=== PATIENT | female | born 1960 | race Caucasian/White ===

== ENCOUNTER 2025-05-07 14:56 | Inpatient (IN) | payer MEDICARE, SELFPAY ==
[2025-05-07 15:10] VITALS: BP 130/76; PULSE 65; PULSE 82; RESP 16; RESP 17; TEMP 36.3; O2SAT 95; BMI 45.8
--- NOTE | 2025-05-07 20:31 | PCM.HP.STD ---
HPI - General General Date of Admission: 05/07/25 Date of Service: 05/07/25 Chief Complaint: Here for rehabilitation. HPI Narrative BENJIE DALE, is a 64 Female who presents with followin05/05/2025 Admit [facility]. 05/05/2025 Orthopedics performed right posterior total hip arthroplasty. 05/06/2025 Doing well, pain controlled with medications, up to bathroom. No difficulty voiding. WBAT, antibiotics 24 hours, discharge on Duricef. PT/OT, pain control. Aspirin 81mg po bid, scd for dvt prophylaxis. PT/OT Home versus SNF. 05/07/2025 Admit to TCU with debility, here for rehabilitation, strengthening, prior to discharge home alone. [facility] Medical History (Updated 05/07/25 @ 20:[address] Max Miller MD) Anxiety Depression GERD (gastroesophageal reflux disease) Osteoarthritis of right hip Debility Home Medications ?Medication ?Instructions ?Recorded ?Last Taken ?Type aspirin 81 mg tablet,delayed 81 mg PO BID blood thinner 05/07/25 Unknown History release (Adult Aspirin Regimen) docusate sodium 100 mg capsule 100 mg PO BID stool softener 05/07/25 Unknown History duloxetine 30 mg capsule,delayed 30 mg PO QHS mood 05/07/25 Unknown History release hydrocodone-acetaminophen 5-325mg 1 - 2 tab PO Q4H PRN pain 05/07/25 Unknown History 5mg-325mg hydroxyzine pamoate 25 mg capsule 25 - 50 mg PO QHS PRN anxiety 05/07/25 Unknown History polyethylene glycol 3350 17 17 g PO DAILY PRN constipation 05/07/25 Unknown History gram/dose oral powder (Miralax) tranexamic acid 650 mg tablet 1,950 mg PO BID bleeding 05/07/25 Unknown History Allergy/AdvReac Type Severity Reaction Status Date / Time tramadol Allergy Intermediate Hives Verified 05/07/25 15:53 trazodone Allergy Hives Verified 05/07/25 15:53 Family History (Updated 05/07/25 @ 20:[address] Max Miller MD) Mother Heart disease Diabetes Myocardial infarction Ovarian cancer Morbid obesity Father Heart disease Myocardial infarction Aneurysm Aunt Ovarian cancer Surgical History (Updated 05/07/25 @ 20:[address] Max Miller MD) History of wisdom tooth extraction History of tubal ligation History of total left knee replacement History of total left hip arthroplasty History of lithotripsy History of total right knee replacement History of bilateral salpingo-oophorectomy (BSO) History of hysterectomy History of dilatation and curettage History of removal of ureteral stent History of cystoscopy History of appendectomy Status post total hip replacement, right Social History (Updated 05/07/25 @ 20:[address] Max Miller MD) household members: none Smoking Status: Never smoker alcohol intake: current alcohol intake frequency: holidays/special occasions only details: Once per month. substance use type: does not use ROS Constitutional Constitutional: Reports weakness; Denies chills, fever(s) or weight gain ENT HEENT: Denies headache(s), nasal congestion or nasal discharge Cardiovascular Cardiovascular: Denies chest pain or palpitations Respiratory/Chest Respiratory/Chest: Denies cough, excessive phlegm production or shortness of breath with exertion Gastrointestinal Gastrointestinal: Denies abdominal pain, nausea or vomiting Genitourinary Genitourinary: Denies dysuria Musculoskeletal Musculoskeletal: Denies joint pain or joint swelling Integumentary Integumentary: Denies rash or wounds Neurologic Neurologic: Denies focal weakness, numbness or tingling Psychiatric Psychiatric: Denies anxiety, auditory hallucinations, depression, homicidal ideation or suicidal ideation Vital Signs Vital Signs Vital Signs: 05/07/25 15:10 05/07/25 15:10 Temperature 97.3 F L Temperature Source Temporal Pulse Rate 82 65 Pulse Rhythm Regular Pulse Strength Normal (2+) Respiratory Rate 16 17 Respiratory Effort Normal Non-Labored Respiratory Depth Normal Respiratory Pattern Normal Blood Pressure 130/76 H Blood Pressure Mean 94 Blood Pressure Source Monitor Blood Pressure Position Sitting Blood Pressure Location Right Arm Pulse Ox 95 Oxygen Delivery Method Room Air Room Air Weight Weight: 103.011 kg Body Mass Index (BMI) 45.8 Physical Exam Const alert General Appearance: cooperative HEENT normocephalic Eyes PERRL and EOMs intact bilaterally Neck supple, no JVD and no carotid bruits Resp normal respiratory effort, normal air movement and clear to auscultation bilaterally Cardio regular rate and regular rhythm GI normal to inspection, nondistended, normoactive bowel sounds, non-tender and non-distended Extremity normal capillary refill General Extremity: Negative for edema Skin no rashes or lesions noted General Skin Exam: no breakdown Psych affect normal Appearance: appropriate Assessment & Plan Assessment/Plan (1) Debility: (2) Osteoarthritis of right hip: (3) Status post total hip replacement, right: (4) GERD (gastroesophageal reflux disease): (5) Depression: (6) Anxiety: PLAN: Plan 64 year old female with below past medical history underwent right total hip replacement 05/05/2025, admitted to TCU with debility, here for rehabilitation, strengthening, prior to discharge home alone. Debility - PT/OT. Pain - Tylenol 1000mg q8, Oxycodone mg q4 prn pain (1-10). Bowel - Miralax 17gm daily, senna/colace 2 tablets bid, Magnesium citrate 300mL daily prn. Adult immunization - Administer pneumonia vaccine, covid vaccine, flu vaccine as appropriate. DVT prophylaxis - Aspirin 81mg bid thru 06/02/2025. Insomnia - Hydroxyzine 25mg - 50mg qhs prn. Tinea Corporis - Nystatin powder topical bid. The following psychotropic medication was present on admission: Duloxetine 30mg qhs. Psychotropic medication therapy is indicated for a diagnosis of: Major Depression. Based on my clinical evaluation, continuation of the medication is necessary at this time. Gradual dose reduction plan (select one): ____ GDR will be attempted. Will monitor patient symptoms and behaviors in response to GDR. __x__ GRD contraindicated. 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
[2025-05-07] MEDS: Senna/Docusate Sodium 1 Tablet 2 TABLET PO (21:33)
[2025-05-07] MEDS: hydrOXYzine PAM 25 MG Capsule PO (21:38)
[2025-05-08 05:00] VITALS: BP 121/62; PULSE 71; RESP 16; TEMP 36.7; O2SAT 97
[2025-05-08 05:47] LABS: Hematocrit 32.9 % (37-47); Hemoglobin 9.9 g/dL (12.0-15.0); Immature Granulocytes Count 0.100 X10^3/uL (0.0-0.0); Mean Corp Hgb Conc 30.1 g/dL (32-36); Mean Corpuscular Volume 85.2 fL (81-99); Mean Platelet Vol. 8.9 fl (6.2-12.0); NRBC Flagged by Analyzer 0 % (0-5); Platelet Count 277 K/mm3 (150-450); RBC Distribution Width CV 15.6 % (11.6-14.6); RBC Distribution Width SD 47.8 fl (35.1-43.9); Red Blood Count 3.86 M/mm3 (4.2-5.4); White Blood Count 11.7 K/mm3 (4.4-11.0)
[2025-05-08 06:04] LABS: Anion Gap 7 (5-15); BUN 16 mg/dL (4-19); BUN/Creat Ratio 18.3 RATIO (10-20); Calcium,Total 8.3 mg/dL (7.6-11.0); Carbon Dioxide 24.4 mmol/L (21.0-32.0); Chloride 106 mmol/L (98-108); Estimated Creatinine Clearance 70.53 ml/min (50-250); Glucose 121 mg/dL (70-99); Potassium 4.4 mmol/L (3.3-5.1)
--- NOTE | 2025-05-08 07:40 | PHA.CONS_ITS ---
Documented by User: Sandra Verdin 05/08/25 07:53 TCU RX Drug Regimen Review Subjective/Objective Subjective/Objective Subjective: TCU Admission. 64 YOF presented to outside hospital and underwent right total hip replacement 05/05/2025. Admitted to TCU with debility for [facility] and rehabilitation. Objective: Allergies tramadol Allergy (Intermediate, Verified 05/07/25 15:53) Hives trazodone Allergy (Verified 05/07/25 15:53) Hives Current Medications Generic Name Dose Route Start Last Admin Trade Name Freq PRN Reason Stop Dose Admin Acetaminophen 1,000 mg 05/07/25 18:00 05/08/25 05:23 Acetaminophen 500 Mg Tablet PO 1,000 mg Q8 LASHELL Administration Aspirin 81 mg 05/07/25 17:00 05/07/25 18:08 Aspirin 81 Mg Tab.Chew PO 06/02/25 23:59 81 mg BIDCM LASHELL Administration Duloxetine HCl 30 mg 05/07/25 22:00 05/07/25 21:34 Duloxetine Hcl 30 Mg Capsule PO 30 mg QHS LASHELL Administration Hydroxyzine Pamoate 25 - 50 mg 05/07/25 15:22 05/07/25 21:38 Hydroxyzine Antonieta 25 Mg Capsule PO 25 mg QHS PRN Administration anxiety Magnesium Citrate 300 ml 05/07/25 20:43 Magnesium Citrate 300 Ml PO DAILY PRN CONSTIPATION Nystatin 1 applic 05/07/25 22:00 05/07/25 21:33 Nystatin Powder 15gm Bottle TOPICAL 1 applic BID LASHELL Administration Protocol Oxycodone HCl 5 mg 05/07/25 17:29 05/08/25 03:38 Oxycodone 5 Mg Tablet PO 5 mg Q4H PRN PRN Administration Pain Score 1-10 or Pre PT/OT Polyethylene Glycol 17 gm 05/08/25 10:00 Polyethylene Glycol 3350 17 Gm Packet PO DAILY LASHELL Senna/Docusate Sodium 2 tablet 05/07/25 22:00 05/07/25 21:33 Senna/Docusate Sodium 1 Tablet PO 2 tablet BID LASHELL Administration Tuberculin PPD 0.1 ml 05/15/25 10:00 Tuberculin,Purif.Prot.Deriv. 50 Tu/Ml Vial ID 05/15/25 10:01 X1 ONE Tuberculin PPD 0.1 ml 05/08/25 10:00 Tuberculin,Purif.Prot.Deriv. 50 Tu/Ml Vial ID 05/08/25 10:01 X1 ONE Problem List Anxiety (Acute) Depression (Acute) GERD (gastroesophageal reflux disease) (Acute) Status post total hip replacement, right (Acute) Osteoarthritis of right hip (Acute) Debility (Acute) Vital Signs Temp Pulse Resp BP Pulse Ox O2 Del Method 98.0 F 71 16 121/62 H 97 Room Air 05/08/25 05:00 05/08/25 05:00 05/08/25 05:00 05/08/25 05:00 05/08/25 05:00 05/08/25 05:00 Oxygen Delivery Method Room Air Weight: 103.011 kg Body Mass Index (BMI) 45.8 Sodium 138 mmol/L (133-145) 05/08/25 05:08 Potassium 4.4 mmol/L (3.3-5.1) 05/08/25 05:08 Chloride 106 mmol/L (98-108) 05/08/25 05:08 Carbon Dioxide 24.4 mmol/L (21.0-32.0) 05/08/25 05:08 Anion Gap 7 (5-15) 05/08/25 05:08 BUN 16 mg/dL (4-19) 05/08/25 05:08 Creatinine 0.86 mg/dL (0.70-1.20) 05/08/25 05:08 Est GFR (MDRD) Non-Af 75 (>60) 05/08/25 05:08 BUN/Creatinine Ratio 18.3 RATIO (10-20) 05/08/25 05:08 Glucose 121 mg/dL (70-99) H 05/08/25 05:08 Assessment/Plan: 1. Pain: acetaminophen 1000mg PO Q8 and oxycodone 5mg PO Q4H PRN pain 1-10. Resident has received the following prn pain doses since admission: 3 doses of oxycodone for pain scores of 8 and 9 in the hip. Monitor pain scores before/after prn administration for response, PRN pain medication usage, symptoms of pain/resident distress and ability to participate in therapy. Monitor for constipation (last BM:05/05/25), respiratory depression (current RR range: 16-17), falls and sedation/delirium (Beers). Please consider ordering LFTs since the Resident is on scheduled acetaminophen if clinically appropriate. Thanks. 2. Bowel: Miralax 17gm PO daily, senna/docusate 2T PO BID and magnesium citrate 300mL PO daily PRN constipation. Resident hasn't received prn doses since admission. Last document bowel movement: 05/05/25. Monitor for usage of prn medications, abdominal pain, frequency of bowel movements, diarrhea. Recommend holding bowel regimen if resident develops diarrhea. 3. DVT prophylaxis: aspirin 81mg PO BIDCM thru 06/02/25. Please continue to monitor for S/S of bleeding/DVT/bruising and hemoglobin (last 9.9g/dL). 4. Insomnia: hydroxyzine 25-50mg PO QHS PRN insomnia. Resident has had 1 PRN dose so far. Please continue to monitor for excessive daytime drowsiness, PRN usage, dementia/delirium (BEERs), anticholinergic side effects (dry mouth, dry eyes, constipation, BEERs). 5. Tinea Corporis: Nystatin powder topical BID. Please continue to monitor. Assessment/Plan for indications treated with psychotropic medications: 1. Major Depression: duloxetine 30mg PO QHS. Please see physician note regarding GDR. Monitor for diarrhea, nausea, appetite/weight loss, anxiety or drowsiness, suicidal thoughts or behaviors (Boxed Warning), symptoms of bleeding, symptoms of serotonin syndrome (including agitation, confusion, hyperreflexia, rigidity/myoclonus, tremor, tachycardia, tachypnea), sodium levels (last Na =138mmol/L). Monitor blood pressure. BP range since admission =121/62-130/76. Monitor for orthostatic hypotension, including postural dizziness, syncope or falls. Check orthostatic vital signs if suspicion of orthostasis. Monitor for hepatotoxicity (abdominal pain, nausea, jaundice, dark urine, AST/ALT as clinically indicated). AST/ALT = please consider ordering levels, no levels in chart. Monitor for efficacy including resident symptoms, behaviors and indications of distress. Monitor for tolerability including mental status, cognition, excessive sleepiness, withdrawal or decreased participation in activities and decline in physical functioning. Maximize use of nonpharmacologic/behavioral interventions to facilitate dose reduction or discontinuation as appropriate. Please evaluate the appropriateness of GDR unless contraindicated. If appropriate, GDR should be attempted in 2 separate quarters within the first year of use or admission to TCU. If GDR attempted, monitor resident symptoms/behaviors. Medical chart and medication regimen reviewed. The following medication irregularities or issues were identified: 1. Acetaminophen 1000mg PO Q8. Please consider ordering LFTs since the Resident is on scheduled acetaminophen if clinically appropriate. Thanks. Date Date of Note: 05/08/25 Documented by User: Dr. Max Miller MD 05/08/25 07:53 TCU RX Drug Regimen Review Provider Comments Provider responsibility Provider Comments to Recommendations by Pharmacy Agree
[2025-05-08] MEDS: Polyethylene Glycol 3350 17 GM PACKET PO (08:09)
[2025-05-08] MEDS: Senna/Docusate Sodium 1 Tablet 2 TABLET PO ×2 (08:09→22:15)
[2025-05-08 08:19] VITALS: BP 130/81; PULSE 80; RESP 18; TEMP 36.4; O2SAT 97
--- NOTE | 2025-05-08 10:57 | CASEMGMT ---
Social Work SW met with patient to complete initial assessment. Introduced self and role. Verified/updated contacts. Patient confirmed code status as DNR-CCA, no intubation. SW offered to complete advance directives for pt and pt agreed naming both dtr's. SW to complete prior to DC. See SW assessment for further details. SW will continue to follow for DC planning. Raissa Moreno WINDOW REPAIRER MEDIA SPECIALIST
--- NOTE | 2025-05-08 11:19 | NURSING ---
Platen Press Operator Apprentice Note; Activity Asset: Kasey Quintero is independent in her choice of daily activities. She stated she prefers in room activities at this time. 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 She will work from room, watch tv, visit w/family and she welcomes the therapy dog. Staff will remind her of weekly activities and respect her right to say no.
[2025-05-08] MEDS: Tuberculin,Purif.prot.deriv. 50 TU/ML Vial 0.1 ML ID (11:37)
[2025-05-08 14:20] VITALS: PULSE 80; RESP 18; O2SAT 97
[2025-05-08] MEDS: Magnesium Citrate 300 ML PO (22:14)
[2025-05-08] MEDS: hydrOXYzine PAM 25 MG Capsule PO (22:15)
[2025-05-09 05:00] VITALS: BP 124/80; PULSE 76; RESP 18; TEMP 36.7; O2SAT 98
[2025-05-09 07:35] LABS: AST(SGOT) 23 U/L (<=31); Alanine Aminotransfer ALT/SGPT < 5 U/L (<=34); Albumin, Serum 3.0 g/dL (3.4-4.8); Alkaline Phosphatase 72 U/L (35-104); Anion Gap 11 (5-15); BUN 15 mg/dL (4-19); BUN/Creat Ratio 17.9 RATIO (10-20); Calcium,Total 8.5 mg/dL (7.6-11.0); Carbon Dioxide 23.1 mmol/L (21.0-32.0); Chloride 104 mmol/L (98-108); Estimated Creatinine Clearance 74.88 ml/min (50-250); Globulin 3.7 g/dL (2.2-4.2); Glucose 117 mg/dL (70-99); Potassium 4.2 mmol/L (3.3-5.1)
[2025-05-09 07:37] VITALS: BP 156/73; PULSE 79; RESP 18; TEMP 36.2; O2SAT 98
[2025-05-09] MEDS: Polyethylene Glycol 3350 17 GM PACKET PO (07:39)
[2025-05-09] MEDS: Senna/Docusate Sodium 1 Tablet 2 TABLET PO ×2 (07:40→21:35)
[2025-05-09 10:00] VITALS: PULSE 79; RESP 17; O2SAT 98
[2025-05-09 21:29] VITALS: BP 135/77; PULSE 81; O2SAT 97
--- NOTE | 2025-05-10 03:10 | NURSING ---
Addendum entered by Ana Maria Saleem 05/10/25 04:20: pt reported nausea improved at this time. Additional ice pack placed on pt's right thigh/knee per pt request. Original Note: pt c/o n/v, per pt has had intermittent episode since surgery. Pt verbally says, It's all these medicine, I'm not used to taking these much.VSS BP 135/79, HR 85, 97% RA, 98.2 oral temp. Pt refused additional pharmacological intervention at this time. Pt offered a fresh drink, provided a fresh can of sprite per pt request. Educated pt to call if additional help needed.
[2025-05-10 05:57] VITALS: BP 148/93; PULSE 77; RESP 17; TEMP 36.5; O2SAT 98
--- NOTE | 2025-05-10 06:11 | RAD_ITS ---
PROCEDURE: ABDOMEN SINGLE VIEW (PORTABLE) 05/10/2025 REASON FOR EXAM: NAUSEA TECHNIQUE: Procedure Code: RADABD_P Modality: DX Procedure: ABDOMEN SINGLE VIEW (PORTABLE) COMPARISON: None. FINDINGS: Bowel gas: Unremarkable bowel-gas pattern. Calcifications: No abnormal calcifications. Calcified phleboliths in the left pelvis. Bones: Status post bilateral hip replacement. No periprosthetic fracture. RAD/Abdomen Single View (Portable) IMPRESSION: Unremarkable. Nonobstructive bowel-gas pattern. Reading Location: [id number]
--- NOTE | 2025-05-10 07:00 | NURSING ---
pt called and c/o n/v again, denies other GI issues. BSx4, soft and NT. VS obtained and stable. This RN explained to pt that all nonpharmaceutical interventions has implemented and might need to try an anti nausea medications to relieve symptoms. Pt agreed to try at this time. Contacted and notified , new orders in.
[2025-05-10] MEDS: Senna/Docusate Sodium 1 Tablet 2 TABLET PO ×2 (09:29→22:37)
[2025-05-10 09:34] VITALS: BP 133/78; PULSE 77; RESP 18; TEMP 36.6; O2SAT 18
[2025-05-10 12:02] LABS: Mucous, Urine 0 SEEN /hpf (<or=2+)
[2025-05-10 12:06] LABS: Color, Urine Yellow (Yellow); Glucose, Dipstick Normal (Normal); Ketone-Dipstick Negative (Negative); Leukocyte Esterase-Dipstick 25 /ul (Negative); Nitrite-Dipstick Negative (Negative); Occult Blood-Urine Negative /ul (Negative); Protein-Dipstick 15 mg/dl (Negative); Specific Gravity, Urine 1.015 (1.002-1.030); Urine Bilirubin Dipstick Negative (Negative)
[2025-05-10 12:15] LABS: Red Blood Cells-Urine 0-5 SEEN /hpf (0-5); Squamous Epithelial Cells - UA 0-5 SEEN /hpf (5-10)
[2025-05-11 08:42] VITALS: BP 121/71; PULSE 83; RESP 16; TEMP 36.6; O2SAT 95
[2025-05-12 08:02] VITALS: BP 134/64; PULSE 79; RESP 18; TEMP 37.1; O2SAT 97
[2025-05-12] MEDS: Senna/Docusate Sodium 1 Tablet 2 TABLET PO ×2 (08:06→21:41)
[2025-05-12 10:00] VITALS: PULSE 75; RESP 16; O2SAT 97
--- NOTE | 2025-05-12 17:19 | NURSING ---
right hip dressing removed , pt tolerated well, no new drainage noted , skin intact, surgical incision.
[2025-05-13] MEDS: Polyethylene Glycol 3350 17 GM PACKET PO (08:23)
[2025-05-13] MEDS: Senna/Docusate Sodium 1 Tablet 2 TABLET PO ×2 (08:24→20:00)
[2025-05-13 08:30] VITALS: BP 150/73; PULSE 82; RESP 18; TEMP 36.3; O2SAT 99
--- NOTE | 2025-05-13 11:20 | CASEMGMT ---
BIMS () and PHQ2 (1) interviews completed on this date for MDS assessment. RAEGAN Frederick
--- NOTE | 2025-05-13 11:36 | NURSING ---
Offered covid vaccine, VIS provided. Resident declines.
[2025-05-13 15:29] VITALS: BMI 45.8
[2025-05-14 08:14] VITALS: BP 129/65; PULSE 79; RESP 16; TEMP 36.4; O2SAT 96
[2025-05-14] MEDS: Senna/Docusate Sodium 1 Tablet 2 TABLET PO ×2 (08:16→21:52)
--- NOTE | 2025-05-14 08:25 | NURSING ---
Director Case Management Note, MDS for 05/14/2025 Complete
[2025-05-14 10:00] VITALS: PULSE 79; RESP 17; O2SAT 96
--- NOTE | 2025-05-14 10:55 | CASEMGMT ---
Social Work IDT met with patient and dtr for care plan meeting. Discussed patient's progress in PT/OT/SN/RDN. Educated to [facility] insurance with NRD 05/19 and continued stay is not guaranteed with each review. Provided pt/family with written communication of insurance process and copay coverage during stay. Pt's goal is to return home alone closer to PLOF. Confirmed pt will need BSC and HHC at [place]. Pt states she used a HHC agency prior and will find out that name and notify this worker. SW offered to provide a list at [place] for options. Pt lives out of [facility] and SW does not have any formal resources to provide pt. Pt said her family and friends can help. SW revisited need to complete advance directives. Obtained addresses and completed with pt. Original and copies provided to pt. Copy placed on chart. SW will continue to follow for DC planning. Raissa Moreno DRAFTER MECHANICAL HEAD IRRIGATOR
[2025-05-15 04:09] VITALS: PULSE 72; RESP 16; O2SAT 96
[2025-05-15 08:55] LABS: Hematocrit 32.9 % (37-47); Hemoglobin 10.1 g/dL (12.0-15.0); Immature Granulocytes Count 0.140 X10^3/uL (0.0-0.0); Mean Corp Hgb Conc 30.7 g/dL (32-36); Mean Corpuscular Volume 84.4 fL (81-99); Mean Platelet Vol. 8.5 fl (6.2-12.0); NRBC Flagged by Analyzer 0 % (0-5); Platelet Count 337 K/mm3 (150-450); RBC Distribution Width CV 15.5 % (11.6-14.6); RBC Distribution Width SD 46.9 fl (35.1-43.9); Red Blood Count 3.90 M/mm3 (4.2-5.4); White Blood Count 11.9 K/mm3 (4.4-11.0)
[2025-05-15 09:24] LABS: Anion Gap 12 (5-15); BUN 17 mg/dL (4-19); BUN/Creat Ratio 18.8 RATIO (10-20); Calcium,Total 8.9 mg/dL (7.6-11.0); Carbon Dioxide 23.1 mmol/L (21.0-32.0); Chloride 105 mmol/L (98-108); Estimated Creatinine Clearance 68.15 ml/min (50-250); Glucose 135 mg/dL (70-99); Potassium 4.4 mmol/L (3.3-5.1)
[2025-05-15 10:13] VITALS: BP 126/83; PULSE 88; RESP 17; TEMP 36.4; O2SAT 96
[2025-05-15] MEDS: Polyethylene Glycol 3350 17 GM PACKET PO (10:20)
[2025-05-15] MEDS: Tuberculin,Purif.prot.deriv. 50 TU/ML Vial 0.1 ML ID (12:09)
--- NOTE | 2025-05-16 03:37 | NURSING ---
Written communication left for Dr. Miller regarding pt's complaint of back itching. No obvious rash noted on assessment. Pt stated she had been scratching her back due to itching. Lotion applied to area. Pt stated lotion helped relieve some of the itching. Pt requesting order for PRN anti-itch lotion.
[2025-05-16 08:17] VITALS: BP 140/75; PULSE 80; RESP 17; TEMP 36.2; O2SAT 96
[2025-05-16] MEDS: Hydrocortisone 2.5% Crm 1 APPLIC TOPICAL ×2 (10:30→21:37)
--- NOTE | 2025-05-16 14:08 | CASEMGMT ---
Social Work SW spoke with pt at bedside. Pt was made adlib in room today, though still noted pain. SW praised for improvement, though, cautioned insurance update is 05/19 and is likely to receive a DC date. Pt disappointed, hoping for another week since her family is on vacation. SW offered to provide resources for CARBON COATER MACHINE OPERATOR, but pt denied d/t cost. Pt expressed concern with car tx but RN OR LVN is scheduling with sister for next week. Pt also provided this worker with name of preferred HHC agency that she used prior - [facility]. SW to assist with coordinating needs at DC. Will keep pt updated. Will continue to follow. Raissa Moreno TOUR SALES REPRESENTATIVE HELPDESK TECHNICIAN
[2025-05-17 11:15] VITALS: BP 126/72; PULSE 86; RESP 18; TEMP 36.3; O2SAT 98
[2025-05-18 10:15] VITALS: BP 127/74; PULSE 78; RESP 18; TEMP 36.2; O2SAT 92
--- NOTE | 2025-05-19 09:24 | MDS.RN ---
Information for the MDS was obtained from review of the clinical record, interview of resident, staff, and direct observation of resident?s care.
[2025-05-19 09:27] VITALS: BP 139/90; PULSE 82; RESP 18; TEMP 36.4; O2SAT 98
--- NOTE | 2025-05-19 15:46 | CASEMGMT ---
Social Work Insurance issued LCD 05/22, DC 05/23. SW spoke with pt to inform of DC date. SW provided NOMNC to pt and educated to appeal rights. Pt verbalized understanding and denied appeal. Pt is agreeable to DC. Family will transport. Pt confirmed use of [facility] at home [facility] and denied DME needs. - SW sent referral via [facility] to [facility]. Plan: DC home alone 05/23, [facility] PT/OT/SN Raissa Moreno ROAD MACHINE RUNNER CERTIFIED HYPERBARIC TECHNICIAN
--- NOTE | 2025-05-19 21:09 | DS.PCM_ITS ---
Providers Date of Admission: 05/07/25 Primary Care Physician: NICKO DO Reason For Visit: R TOTAL HIP ARTHOPLASTY Diagnosis Discharge Diagnosis (1) Debility: Status: Acute Code(s): R53.81 - Other malaise (2) Osteoarthritis of right hip: Status: Acute Code(s): M16.11 - Unilateral primary osteoarthritis, right hip (3) Status post total hip replacement, right: Status: Acute Code(s): Z96.641 - Presence of right artificial hip joint (4) GERD (gastroesophageal reflux disease): Status: Acute Code(s): K21.9 - Gastro-esophageal reflux disease without esophagitis (5) Depression: Status: Acute Code(s): F32.A - Depression, unspecified (6) Anxiety: Status: Acute Code(s): F41.9 - Anxiety disorder, unspecified Plan 64 year old female with below past medical history underwent right total hip replacement 05/05/2025, admitted to TCU with debility, here for rehabilitation, strengthening, prior to discharge home alone. * Debility - PT/OT. * Pain - Tylenol 1000mg q8, Oxycodone mg q4 prn pain (1-10). * Bowel - Miralax 17gm daily, senna/colace 2 tablets bid, Magnesium citrate 300mL daily prn. * Adult immunization - Administer pneumonia vaccine, covid vaccine, flu vaccine as appropriate. * DVT prophylaxis - Aspirin 81mg bid thru 06/02/2025. * Insomnia - Hydroxyzine 25mg - 50mg qhs prn. * Tinea Corporis - Nystatin powder topical bid. The following psychotropic medication was present on admission: Duloxetine 30mg qhs. Psychotropic medication therapy is indicated for a diagnosis of: Major Depression. Based on my clinical evaluation, continuation of the medication is necessary at this time. Gradual dose reduction plan (select one): ____ GDR will be attempted. Will monitor patient symptoms and behaviors in response to GDR. __x__ GRD contraindicated. 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 Medications at Discharge Home Medications duloxetine 30 mg capsule,delayed release 30 mg PO QHS mood 05/07/25 acetaminophen 500 mg tablet 1,000 mg (2 x 500 mg) PO Q8 #0 tabs 05/19/25 aspirin 81 mg chewable tablet 81 mg PO BIDCM 10 days #20 tabs 05/19/25 oxycodone 5 mg tablet 5 mg PO Q4H PRN PRN Pain Score 1-10 Or Pre Pt/Ot 7 days #42 tabs 05/19/25 sennosides 8.6 mg-docusate sodium 50 mg tablet (Stimulant Laxative Plus) 2 tab PO BID 30 days #120 tabs 05/19/25 Hospital Course Operations total hip replacement Procedures None Summary of Care Provided Minutes Spent on Discharge: 35 Hospital Course: 64 year old female with below past medical history underwent right total hip replacement 05/05/2025, admitted to TCU with debility, here for rehabilitation, strengthening, prior to discharge home alone. Discharge home alone 05/23/2025, [facility] PT/OT/SN. Physical Exam Const alert General Appearance: cooperative HEENT normocephalic Eyes PERRL and EOMs intact bilaterally Neck supple, no JVD and no carotid bruits Resp normal respiratory effort, normal air movement and clear to auscultation bilaterally Cardio regular rate and regular rhythm GI normal to inspection, nondistended, normoactive bowel sounds, non-tender and non-distended Extremity normal capillary refill General Extremity: Negative for edema Skin no rashes or lesions noted General Skin Exam: no breakdown Psych affect normal Appearance: appropriate Weight / BMI Weight Weight: 103.011 kg Body Mass Index (BMI) 45.8 ABG / Lab / Microbiology Data 05/15/25 07:21 05/15/25 07:21 D/C Instructions Discharge Activity: Return to Normal Activity, May Shower and Use Walker Weight Bearing Status: Weight bearing as tolerated Call your doctor if you observe: Fever of 101 or Higher, Inability to urinate, Inability to have a bowel movement, Shortness of breath, Dizziness, Fainting spells, Swelling in the ankles, Chest pain and Uncontrolled pain DC O2, CPAP, BIPAP Needs Home O2 Discharge instructions: No Additional Instructions: Discharge home alone 05/23/2025, [facility] PT/OT/SN. Please Follow Up With: Teresa Walden CNP When: As scheduled. Meaningful Use Info Meaningful Use Meaningful Use Diagnoses (Choose all that apply): None applicable Discharge Plan Admission Admit Date/Time: 05/07/25 14:56 Primary Reason for Your Visit: Debility. Attending Provider: Max Miller Chi Primary Care Provider: NICKO DO Instructions Additional Instructions / Restrictions: Discharge home alone 05/23/2025, [facility] PT/OT/SN. Discharge Orders/Prescriptions Prescriptions: New sennosides-docusate sodium [Stimulant Laxative Plus] 8.6-50 mg Tablet 2 tab PO BID 30 Days Qty: 120 0RF acetaminophen 500 mg Tablet 1,000 mg PO Q8 Qty: 0 0RF aspirin 81 mg Tablet,Chewable 81 mg PO BIDCM 10 Days Qty: 20 0RF oxycodone 5 mg Tablet 5 mg PO Q4H PRN PRN (Reason: Pain Score 1-10 Or Pre Pt/Ot) 7 Days Qty: 42 0RF Continued duloxetine 30 mg capsule,delayed release(DR/EC) 30 mg PO QHS Discontinued hydrocodone-acetaminophen 5-325 mg tablet 1 - 2 tab PO Q4H PRN (Reason: pain) Rx Instructions: 1 tab pain 4-6 2 tab pain 7-10 hydroxyzine pamoate 25 mg capsule 25 - 50 mg PO QHS PRN (Reason: anxiety) docusate sodium 100 mg capsule 100 mg PO BID aspirin [Adult Aspirin Regimen] 81 mg tablet,delayed release (DR/EC) 81 mg PO BID polyethylene glycol 3350 [Miralax] 17 gram/dose powder 17 g PO DAILY PRN (Reason: constipation) tranexamic acid 650 mg tablet 1,950 mg PO BID Referrals / Follow Up: NICKO DO [Other] Disposition Disposition (needs filled in before D/C Order can be placed): Home Health Service
[2025-05-20 09:21] VITALS: BP 145/74; PULSE 82; RESP 18; TEMP 36.2; O2SAT 96
[2025-05-20 14:48] VITALS: BMI 45.5
[2025-05-20 16:10] VITALS: PULSE 78; RESP 18; O2SAT 98
[2025-05-20] MEDS: Hydrocortisone 2.5% Crm 1 APPLIC TOPICAL (20:57)
[2025-05-21 08:48] VITALS: BP 150/69; PULSE 96; RESP 18; TEMP 36.2; O2SAT 97
[2025-05-21 12:00] VITALS: PULSE 87; RESP 18; O2SAT 96
[2025-05-21] MEDS: Hydrocortisone 2.5% Crm 1 APPLIC TOPICAL (21:10)
[2025-05-22 07:55] LABS: Hematocrit 32.1 % (37-47); Hemoglobin 9.7 g/dL (12.0-15.0); Immature Granulocytes Count 0.090 X10^3/uL (0.0-0.0); Mean Corp Hgb Conc 30.2 g/dL (32-36); Mean Corpuscular Volume 84.9 fL (81-99); Mean Platelet Vol. 8.5 fl (6.2-12.0); NRBC Flagged by Analyzer 0 % (0-5); Platelet Count 300 K/mm3 (150-450); RBC Distribution Width CV 15.7 % (11.6-14.6); RBC Distribution Width SD 47.6 fl (35.1-43.9); Red Blood Count 3.78 M/mm3 (4.2-5.4); White Blood Count 10.2 K/mm3 (4.4-11.0)
[2025-05-22 09:21] LABS: Anion Gap 10 (5-15); BUN 18 mg/dL (4-19); BUN/Creat Ratio 19.5 RATIO (10-20); Calcium,Total 8.5 mg/dL (7.6-11.0); Carbon Dioxide 23.2 mmol/L (21.0-32.0); Chloride 107 mmol/L (98-108); Estimated Creatinine Clearance 67.20 ml/min (50-250); Glucose 106 mg/dL (70-99); Potassium 4.5 mmol/L (3.3-5.1)
[2025-05-22 09:57] VITALS: BP 150/67; PULSE 74; RESP 16; TEMP 36.2; O2SAT 96
--- NOTE | 2025-05-22 10:00 | CASEMGMT ---
Social Work SW completed BIMS () and PHQ-2 () for MDS assessment. Raissa Moreno OUTER DIAMETER TECHNICIAN TELEPHONE STATION REPAIRER
--- NOTE | 2025-05-22 10:42 | MDS.RN ---
Pain assessment for MDS complete.
[2025-05-23 08:59] VITALS: BP 145/69; PULSE 83; RESP 18; TEMP 36.1; O2SAT 97
== END 2025-05-23 11:15 | disposition home health service (06) | DRG 560 ==
PROVIDERS: Admitting Provider Family Medicine Geriatric Medicine; Visit Provider Family Medicine Geriatric Medicine
DX: Z47.1 Aftercare following joint replacement surgery (principal); Z68.42 Body mass index [BMI] 45.0-49.9, adult; B35.4 Tinea corporis; F32.9 Major depressive disorder, single episode, unspecified; E66.01 Morbid (severe) obesity due to excess calories; M16.11 Unilateral primary osteoarthritis, right hip; F41.9 Anxiety disorder, unspecified; K21.9 Gastro-esophageal reflux disease without esophagitis; Z79.82 Long term (current) use of aspirin; Z79.899 Other long term (current) drug therapy; G47.00 Insomnia, unspecified; Z96.643 Presence of artificial hip joint, bilateral
CPT/HCPCS: 36415; 74018; 80048; 80053; 81001; 85025; 97110; 97162; 97166; 97530; 97535; 97802